=== PATIENT | male | born 1955 | race Caucasian/White ===

== ENCOUNTER 2021-12-05 19:57 | Observation (INO) ==
[2021-12-05 22:45] LABS: Basophils % 0.7 %; Eosinophils # 0.2 K/mcL (0.0-0.6); Eosinophils % 4.4 %; Hematocrit 44.1 % (37.5-50.1); Hemoglobin 14.8 g/dL (12.9-16.9); Immature Granulocytes % 0.4 % (0-4); Lymphocytes # 1.7 K/mcL (0.6-4.6); Lymphocytes % 30.5 %; Mean Corpuscular HGB Conc 33.6 g/dL (31.6-35.5); Mean Corpuscular Volume 92.5 fL (83.0-100.0); Mean Platelet Volume 9.7 fL (9.4-12.4); Monocytes # 0.4 K/mcL (0.0-1.3); Monocytes % 7.1 %; Neutrophils # 3.1 K/mcL (1.6-8.9); Platelet Count 174 K/mcL (140-400); Red Blood Count 4.77 M/mcL (4.19-5.50); Red Cell Distribution Width 11.9 % (11.5-14.5); Segmented Neutrophils % 56.9 %; White Blood Count 5.5 K/mcL (4.3-11.1)
[2021-12-05 22:56] LABS: BUN/Creatinine Ratio 15 (6-26); Blood Urea Nitrogen 15 mg/dL (8-23); Calcium 9.4 mg/dL (8.6-10.3); Carbon Dioxide 26 mEq/L (23-29); Chloride 105 mEq/L (98-107); Glucose 109 mg/dL (70-105); Osmolality,Calculated 291 (280-300); Potassium 4.3 mEq/L (3.5-5.1); Sodium 140 mEq/L (136-145)
[2021-12-05 22:57] LABS: Troponin I < 0.03 ng/mL (< 0.04)
[2021-12-06] MEDS ORDERED: Aspirin 81 MG TAB.CHEW PO ONE (03:31)
[2021-12-06] MEDS ORDERED: Iopamidol - 370 500 ML MLS IVP ONE (03:34)
[2021-12-06 04:40] LABS: Troponin I < 0.03 ng/mL (< 0.04)
[2021-12-06] MEDS ORDERED: *HR* Heparin 5,000 UNIT/ML VIAL IVP PRN ×2 (05:22)
[2021-12-06] MEDS ORDERED: *HR* Heparin 5,000 UNIT/ML VIAL IVP ONE (05:22)
[2021-12-06] MEDS ORDERED: Ondansetron 4 MG/2 ML VIAL IVP PRN (05:30)
[2021-12-06] MEDS ORDERED: Heparin 25,000UNIT/250ML 1/2NS 25,000 UNIT/250 ML IV.SOLN IVC SCH (05:30)
[2021-12-06] MEDS ORDERED: Naloxone 0.4 MG/ML INJ IVP PRN (05:30)
[2021-12-06] MEDS ORDERED: Acetaminophen 325 MG TABLET PO PRN (06:00)
[2021-12-06] MEDS ORDERED: *HR* LORazepam 2 MG/ML VIAL IVP PRN ×2 (06:06)
[2021-12-06 06:20] LABS: BUN/Creatinine Ratio 15 (6-26); Blood Urea Nitrogen 14 mg/dL (8-23); Calcium 9.5 mg/dL (8.6-10.3); Carbon Dioxide 26 mEq/L (23-29); Chloride 106 mEq/L (98-107); Chol/HDL Ratio 3.6 (0-4.9); Cholesterol 158 mg/dL (< 200); Ethanol < 10 mg/dL (Less than 10); Glucose 106 mg/dL (70-105); HDL Cholesterol 44 mg/dL (40-59); LDL Cholesterol,Calculated 79 mg/dL (< 100); Magnesium 1.9 mg/dL (1.6-2.6); Osmolality,Calculated 293 (280-300); Sodium 141 mEq/L (136-145); Triglycerides 173 mg/dL (< 150)
[2021-12-06] MEDS ORDERED: Morphine Sulfate 2 MG/ML SYRINGE IVP PRN (06:32)
[2021-12-06] MEDS ORDERED: Nitroglycerin 0.4 MG TAB.SUBL SL PRN (06:32)
[2021-12-06 08:52] LABS: Hematocrit 41.5 % (37.5-50.1); Mean Corpuscular HGB Conc 33.7 g/dL (31.6-35.5); Mean Corpuscular Hemoglobin 30.8 pg (28.0-33.3); Mean Corpuscular Volume 91.2 fL (83.0-100.0); Mean Platelet Volume 9.7 fL (9.4-12.4); Platelet Count 161 K/mcL (140-400); Red Blood Count 4.55 M/mcL (4.19-5.50); Red Cell Distribution Width 11.9 % (11.5-14.5); White Blood Count 6.2 K/mcL (4.3-11.1)
[2021-12-06] MEDS: Aspirin Enteric Coated 81 MG Tablet PO SCH (08:56)
[2021-12-06] MEDS: Metoprolol XL (24 HR) Succ 50 MG TAB.ER.24H PO SCH (08:56)
[2021-12-06 08:59] LABS: Amylase 28 Units/L (29-103); Ethanol < 10 mg/dL (Less than 10); Lipase 14 Units/L (11-82)
[2021-12-06 09:00] LABS: Troponin I < 0.03 ng/mL (< 0.04)
[2021-12-06] MEDS ORDERED: 0.9 % Sodium Chloride 1,000 ML ONE (15:41)
[2021-12-06] MEDS ORDERED: *HR* Heparin 10,000 UNIT/10 ML VIAL ONE (15:41)
[2021-12-06] MEDS ORDERED: Iopamidol - 370 200 ML INFUS..BTL ONE (15:41)
[2021-12-06] MEDS ORDERED: Nitroglycerin 1,000 MCG/5 ML VIAL IV ONE (15:41)
[2021-12-06] MEDS ORDERED: Heparin 1,000 UNITS/500 mL 500 ML ONE (15:41)
[2021-12-06] MEDS ORDERED: *HR* Midazolam HCl 2 MG/2 ML VIAL ONE (15:48)
[2021-12-06] MEDS ORDERED: *HR* FentaNYL (PF) 100 MCG/2 ML VIAL ONE (15:48)
[2021-12-07 03:41] VITALS: O2SAT 95
[2021-12-07 05:05] LABS: Hematocrit 41.5 % (37.5-50.1); Mean Corpuscular HGB Conc 33.7 g/dL (31.6-35.5); Mean Corpuscular Hemoglobin 30.9 pg (28.0-33.3); Mean Corpuscular Volume 91.6 fL (83.0-100.0); Mean Platelet Volume 9.8 fL (9.4-12.4); Platelet Count 142 K/mcL (140-400); Red Blood Count 4.53 M/mcL (4.19-5.50); Red Cell Distribution Width 11.9 % (11.5-14.5); White Blood Count 5.8 K/mcL (4.3-11.1)
[2021-12-07 05:21] LABS: INR 1.1; Prothrombin Time 12.3 Seconds (9.4-12.1)
[2021-12-07 05:24] LABS: Activated Partial Thrombo Time 33.1 Seconds (26.0-36.0)
[2021-12-07 05:29] LABS: Calcium 8.9 mg/dL (8.6-10.3); Potassium 3.8 mEq/L (3.5-5.1)
[2021-12-07 07:46] VITALS: BP 136/84; PULSE 62; TEMP 98.1
[2021-12-07] MEDS ORDERED: GI Cocktail 40 ML EACH PO ONE (08:07)
[2021-12-07] MEDS: Aspirin Enteric Coated 81 MG Tablet PO SCH (08:51)
[2021-12-07] MEDS: Metoprolol XL (24 HR) Succ 50 MG TAB.ER.24H PO SCH (08:51)
[2021-12-07] MEDS ORDERED: Isosorbide MONOnitrate (24 HR) 30 MG TAB.ER.24H PO SCH (09:00)
[2021-12-07] MEDS ORDERED: Fluticasone Propionate Nasal 50 MCG/SPRAY BOTTLE NS SCH (09:00)
== END 2021-12-07 11:47 | disposition home or self-care (01) ==
LOC: 3BNU 19:57 → EMEROOARM 19:57 → SUATTDRO 12-06 11:50 → 3BNU 12-06 12:20
PROVIDERS: ADMIT Internal Medicine; ATTEND Internal Medicine